=== PATIENT | female | born 1975 | race Two or more races ===

== ENCOUNTER 2020-04-11 16:52 | Inpatient (IN) | payer OTHER ==
[~2020-04-11] VITALS: Ht 154.9 cm; Wt 58.5 kg
[2020-04-11] MEDS ORDERED: PRENATAL TABLE1 EAC1 PO (18:03)
[2020-04-11] MEDS ORDERED: IRON18 MG PO (18:04)
[2020-04-11] MEDS ORDERED: IRON236 MG PO (18:08)
[2020-04-11] MEDS ORDERED: IRON PO (18:08)
[2020-04-11] MEDS ORDERED: SYNTHROID50 MCG PO (18:09)
== END 2020-04-14 12:49 | disposition home or self-care (01) | DRG 807 ==
LOC: LDR 16:52 → OB/GYN 16:52
PROVIDERS: ADMIT Obstetrics & Gynecology Maternal & Fetal Medicine; ATTEND Obstetrics & Gynecology Maternal & Fetal Medicine
PROC: 10E0XZZ Delivery of Products of Conception, External Approach (ICD-10-PCS; principal; 2020-04-11)
PROC: 0KQM0ZZ Repair Perineum Muscle, Open Approach (ICD-10-PCS; 2020-04-11)
PROC: 3E033VJ Introduction of Other Hormone into Peripheral Vein, Percutaneous Approach (ICD-10-PCS; 2020-04-11)
PROC: 0W8NXZZ Division of Female Perineum, External Approach (ICD-10-PCS; 2020-04-11)
PROC: 4A1HXFZ Monitoring of Products of Conception, Cardiac Rhythm, External Approach (ICD-10-PCS; 2020-04-11)
DX: O70.1 Second degree perineal laceration during delivery (principal); Z37.0 Single live birth; O99.824 Streptococcus B carrier state complicating childbirth; Z3A.37 37 weeks gestation of pregnancy; Z20.828 Contact with and (suspected) exposure to other viral communicable diseases